=== PATIENT | female | born 1990 | race African-American/Black ===

== ENCOUNTER 2023-08-24 15:24 | Emergency (ER) | payer BC, MEDICAID, OTHER ==
[~2023-08-24] VITALS: Ht 162.6 cm; Wt 85.4 kg
[2023-08-24] MEDS: HYDROcodone-ACET 5/325MG TAB PO ONE (20:15)
[2023-08-24] MEDS: predniSONE 20 MG TAB PO ONE (20:15)
[2023-08-24] MEDS ORDERED: HYDR-4902 PO (20:16)
[2023-08-24 20:22] VITALS: BP 117/71; TEMP 98.7; O2SAT 100
[2023-08-24 20:33] VITALS: PULSE 75; RESP 18
== END 2023-08-24 21:00 | disposition home or self-care (01) ==
LOC: ER 15:24
DX: G89.29 Other chronic pain (principal); M25.511 Pain in right shoulder; X50.0XXA Overexertion from strenuous movement or load, initial encounter; Y93.01 Activity, walking, marching and hiking; Y92.69 Other specified industrial and construction area as the place of occurrence of the external cause; Y99.8 Other external cause status
CPT/HCPCS: 73030